=== PATIENT | male | born 1940 | race Caucasian/White ===

== ENCOUNTER 2018-07-30 10:07 | Day surgery (SDC) | payer MEDICARE, OTHER ==
[~2018-07-30] VITALS: Ht 170.2 cm; Wt 99.8 kg
[2018-07-30] VITALS (11 sets, daily range): BP systolic 144–200; BP diastolic 63–106
[~2018-07-30 10:07] MED LIST: ceFAZolin sod 1 GM in NS 55 ML IVPB ONE
[2018-07-30] MEDS ORDERED: EDARBI80 MG ORAL (10:56)
[2018-07-30] MEDS ORDERED: ARICEPT23 MG ORAL (10:56)
[2018-07-30] MEDS ORDERED: LANTUS SOL100 UNIT/1 SUBQ (10:56)
[2018-07-30] MEDS ORDERED: CRESTOR20 MG ORAL (10:56)
[2018-07-30] MEDS ORDERED: ASPIR-LOW81 MG ORAL (10:56)
[2018-07-30] MEDS ORDERED: CEPHALEXIN500 M1 ORAL (10:56)
[2018-07-30] MEDS ORDERED: NEXIUM40 MG ORAL (10:56)
[2018-07-30] MEDS ORDERED: TAMSULOSIN HCL0.4 MG ORAL (10:56)
[2018-07-30] MEDS ORDERED: AVODART0.5 MG ORAL (10:56)
[2018-07-30] MEDS ORDERED: METOPROLOL SUCC50 MG ORAL (10:56)
[2018-07-30] MEDS ORDERED: TORSEMIDE20 MG ORAL (10:56)
[2018-07-30] MEDS ORDERED: CLOPIDOGREL75 MG ORAL (10:56)
[2018-07-30] MEDS ORDERED: HYDRALAZINE HCL25 M1 ORAL (10:56)
[2018-07-30] MEDS ORDERED: LR 1000ml 1,000 ML IVLG SCH (11:52)
--- NOTE | 2018-07-30 11:52 | Anethesia Preoperative Eval ---
Jennifer Davis MD 07/30/18 1152: Anesthesia Pre-op PMH/ROS General Date of Evaluation: Jul 30, 2018 Anesthesiologist: Jt ASA Score: ASA 3 Mallampati Score Class I : Soft palate, uvula, fauces, pillars visible Class II: Soft palate, uvula, fauces visible Class III: Soft palate, base of uvula visible Class IV: Only hard plate visible Mallampati Classification: Class III Surgeon: Reese Diagnosis: kindey stone Surgical Procedure: ESWL Anesthesia History: none Family History: no anesthesia problems Allergies: Coded Allergies: No Known Allergies (Unverified , 07/29/18) Medications: see eMAR Patient NPO?: Yes NPO Date: Jul 29, 2018 NPO Time: 22:00 Past Medical History Cardiovascular: Reports: HTN, CAD, arrhythmia, other - HLD; Denies: [place], valve dz Pulmonary: Denies: asthma, COPD, MARISA, other Gastrointestinal/Genitourinary: Reports: other - BPH; Denies: GERD, CRI, ESRD Neurologic/Psychiatric: Denies: dementia, CVA, depression/anxiety, TIA, other Endocrine: Reports: DM; Denies: hypothyroidism, steroids, other HEENT: Reports: [place] (L), [place] (R); Denies: cataract (L), cataract (R), glaucoma, other Hematology/Immune: Denies: anemia, DVT, bleeding disorder, other Musculoskeletal/Integumentary: Reports: OA; Denies: RA, DJD, DDD, edema, other Other: obesity PSxH Narrative: knee sx, bilateral cataract Anesthesia Pre-op Phys. Exam Physician Exam Last Vital Signs Date Time Temp Pulse Resp B/P (MAP) Pulse Ox O2 Delivery O2 Flow Rate FiO2 07/30/18 11:05 98.0 85 20 149/74 95 Room Air Constitutional: NAD Cardiovascular: RRR Respiratory: CTA Airway Exam Mallampati Score: Class III MO: limited ROM: limited Anesthesia Pre-op A/P Labs see chart Risk Assessment & Plan Assessment: ASA III Plan: GA Status Change Before Surgery: No Pre-Antibiotics Drug: Joon Roque MD 07/30/18 1431: Anesthesia Pre-op PMH/ROS General Date of Evaluation: Jul 30, 2018 Time of Evaluation: 14:41 Anesthesiologist: Janna ASA Score: ASA 3 Mallampati Classification: Class III Surgeon: Reese Diagnosis: Abd Pain Surgical Procedure: ESWL Family History: no anesthesia problems Allergies: Coded Allergies: No Known Allergies (Unverified , 07/29/18) Medications: see eMAR Patient NPO?: Yes Past Medical History Cardiovascular: Reports: HTN, CAD, arrhythmia, other - HL Pulmonary: Reports: other - Bronchitis Gastrointestinal/Genitourinary: Reports: other - BPH Endocrine: Reports: DM HEENT: Reports: cataract (L), cataract (R), [place] (L), [place] (R) Other: obesity PSxH Narrative: Knee Sx, Cat Ext IOL Bilateral Anesthesia Pre-op Phys. Exam Physician Exam Vital Signs Date Time Temp Pulse Resp B/P (MAP) Pulse Ox O2 Delivery O2 Flow Rate FiO2 07/30/18 11:01 Room Air 07/30/18 11:05 98.0 85 20 149/74 95 Constitutional: NAD Neurologic: CN 2-12 intact Cardiovascular: RRR Respiratory: CTA Gastrointestinal: S/NT/ND Airway Exam Mallampati Score: Class III MO: limited ROM: limited Teeth: missing, intact Anesthesia Pre-op A/P Risk Assessment & Plan Assessment: ASA 3 Plan: GA Status Change Before Surgery: No Pre-Antibiotics Dru grams Ancef IV Given Within 1 Hr of Incision: Yes Time Given: 15:01 Jennifer Davis MD Jul 30, 2018 11:52 Joon Saldivar MD Jul 30, 2018 14:31
[2018-07-30] MEDS ORDERED: LORazepam Inj 2mg/ml 1ml IV PRN (12:00)
[2018-07-30] MEDS ORDERED: Hydromorphone 0.5mg/0.5ml inj IVP PRN (12:00)
[2018-07-30] MEDS ORDERED: Ketorolac 30mg Inj IV PRN (12:00)
[2018-07-30] MEDS ORDERED: Midazolam 2mg/2ml Inj IVP PRN (12:00)
[2018-07-30] MEDS ORDERED: fentaNYL 100 mcg/2 mL IV PRN (12:00)
[2018-07-30] MEDS ORDERED: DiphenhydrAMINE 50mg/ml Inj IVP PRN (12:00)
[2018-07-30] MEDS ORDERED: Iothalamate Meglumine 60% 30ML INJ ONE (12:06)
[2018-07-30 12:12] LABS: ANION GAP 14 mmol/L (5-15); BLOOD UREA NITROGEN 64 mg/dL (7-18); CALCIUM 9.1 MG/DL (8.5-10.1); CARBON DIOXIDE 21 MMOL/L (21-32); CHLORIDE 107 MMOL/L (98-107); CREATININE 4.6 MG/DL (0.55-1.30); POTASSIUM 3.6 MMOL/L (3.5-5.1); SODIUM 141 MMOL/L (136-145)
[2018-07-30] MEDS ORDERED: Zemuron 50mg/5ml Inj IV ONE (12:33)
[2018-07-30] MEDS ORDERED: Propofol 200mg/20ml IV ONE ×2 (13:34→13:35)
[2018-07-30] MEDS ORDERED: Lidocaine 1% MPF 10mg/ml 5ml ONE ×2 (13:34→13:35)
[2018-07-30] MEDS ORDERED: Midazolam 2mg/2ml Inj ONE (13:35)
[2018-07-30] MEDS ORDERED: fentaNYL 100 mcg/2 mL IV ONE (13:35)
[2018-07-30] MEDS ORDERED: Acetaminophen (Non formulary) 100 ML IV ONE (14:15)
[2018-07-30] MEDS ORDERED: Sodium Chloride 10ml vial INJ ONE (14:32)
--- NOTE | 2018-07-30 14:57 | Pre-Procedure Note/Attestation ---
Pre-Procedure Note/Attestation Complete Prior to Procedure Planned Procedure: left Procedure Narrative: left RIRS ESWL Left Indications for Procedure Pre-Operative Diagnosis: left ureteral stone Attestation I attest that I discussed the nature of the procedure; its benefits; risks and complications; and alternatives (and the risks and benefits of such alternatives ), prior to the procedure, with the patient (or the patient's legal congressional representative). I attest that, if there was a reasonable possibility of needing a blood transfusion, the patient (or the patient's legal congressional representative) was given the [facility] standardized written summary, pursuant to the Xavier Caitlin Blood Safety Act ([place] Health and Safety Code # 1645, as amended). I attest that I re-evaluated the patient just prior to the surgery and that there has been no change in the patient's H&P, except as documented below: Phoenix Leigh MD Jul 30, 2018 14:57
[2018-07-30] MEDS ORDERED: NS Irrig 4000ml IRRIG ONE (15:00)
[2018-07-30] MEDS ORDERED: LR 1000ml ONE (15:00)
[2018-07-30] MEDS ORDERED: Sterile Water Irrig 1000ml IRRIG ONE (15:00)
--- NOTE | 2018-07-30 15:21 | Immediate Post-Op Evaluation ---
Immediate Post-Op Evalulation Immediate Post-Op Evalulation Procedure: ESWL Date of Evaluation: Jul 30, 2018 Time of Evaluation: 14:32 IV Fluids: 600 LR Blood Products: 0 Estimated Blood Loss: 20 Urinary Output: 0 Blood Pressure Systolic: 200 Blood Pressure Diastolic: 102 Pulse Rate: 76 Respiratory Rate: 16 O2 Sat by Pulse Oximetry: 100 Temperature (Fahrenheit): 98.1 Pain Score (1-10): 2 Nausea: No Vomiting: No Complications 0 Patient Status: awake, reacts, patent, none Hydration Status: adequate Dru grams Ancef IV Given Within 1 Hr of Incision: Yes Time Given: 15:01 Joon Saldivar MD Jul 30, 2018 15:21
--- NOTE | 2018-07-30 15:22 | 48 Hour Post Anesthesia Eval ---
Post Anesthesia Evaluation Procedure: ESWL Date of Evaluation: Jul 30, 2018 Time of Evaluation: 18:12 Blood Pressure Systolic: 173 0: 89 Pulse Rate: 74 Respiratory Rate: 18 Temperature (Fahrenheit): 98.3 O2 Sat by Pulse Oximetry: 97 Airway: patent Nausea: No Vomiting: No Pain Intensity: 2 Hydration Status: adequate Cardiopulmonary Status: Stable Mental Status/LOC: patient returned to baseline Follow-up Care/Observations: 0 Post-Anesthesia Complications: 0 Follow-up care needed: ready to discharge Joon Saldivar MD Jul 30, 2018 15:22
--- NOTE | 2018-07-30 16:36 | Brief Operative Note ---
Immediate Post Operative Note Operative Note Pre-op Diagnosis: left ureteral stone Procedure: ESWL RIRS Left Post-op Diagnosis: same Post-op Diagnosis: same as pre-op Surgeon: Jason leigh Anesthesia: general Specimen: yes Complications: none Condition: stable Fluids: 500 Estimated Blood Loss: minimal Implant(s) used?: No Phoenix Leigh MD Jul 30, 2018 16:36
[2018-07-30] MEDS ORDERED: D5 1/2NS 1,000 ML IV SCH (16:45)
[2018-07-30] MEDS ORDERED: Tylenol #3 tab (300mg/30mg) ORAL PRN (16:45)
[2018-07-30] MEDS ORDERED: HYDROmorphone 1mg/ml Carpuject SUBQ PRN (16:45)
[2018-07-30] MEDS ORDERED: Norco 5mg/325mg tab ORAL PRN (16:45)
--- NOTE | 2018-08-06 14:45 | Operative Note - Dictated ---
DATE OF OPERATION: 07/30/2018 PREOPERATIVE DIAGNOSIS: Left obstructing mid ureteral stone. POSTOPERATIVE DIAGNOSIS: Left obstructing mid ureteral stone. OPERATION: Cystoscopy, retrograde pyelogram, retrograde intrarenal surgery combined with double-J stent placement. OPERATED BY: Phoenix Leigh M.D. ANESTHESIA: General. FINDINGS: Large imbedded stone in left ureter. INDICATIONS FOR SURGERY: The patient developed acute renal failure and mid left ureteral stone. Treatment options were explained to him at great length including all potential complications. He signed a consent. DESCRIPTION OF SURGERY: He was brought to the operating room, placed in lithotomy position, and prepped and draped in standard fashion. Under general anesthesia, cystoscope was introduced into the bladder. Left ureter was cannulated and contrast showed a stone embedded in the left ureter. The guidewire was placed with difficult beyond the stone into the collecting system of the left kidney. The ureteroscope was introduced and using 360 micron fiber, the stone was fragmented with the laser into small pieces. Using Nitinol basket, stone fragments were removed for pathologic examination. to the kidney. After that, final retrograde was performed and double-J stent was placed in the catheter. Sponge count and instrument count were correct. The patient tolerated the procedure well. No complications. Phoenix Leigh M.D. DR: MALLIKA JOB#: [id number] CC:
== END 2018-07-30 18:15 | disposition home or self-care (01) ==
LOC: SUR 10:07
DX: N20.1 Calculus of ureter (principal); I10 Essential (primary) hypertension; E11.40 Type 2 diabetes mellitus with diabetic neuropathy, unspecified; I25.810 Atherosclerosis of coronary artery bypass graft(s) without angina pectoris; E78.5 Hyperlipidemia, unspecified; I48.91 Unspecified atrial fibrillation; J42 Unspecified chronic bronchitis; N40.0 Benign prostatic hyperplasia without lower urinary tract symptoms; E66.9 Obesity, unspecified; Z79.82 Long term (current) use of aspirin; Z79.4 Long term (current) use of insulin
CPT/HCPCS: 36415; 52356; 80048; 82962; J0360; J0690; J2250; J2405; J2704; J3010; 94003; 94150